=== PATIENT | female | born 1955 | race Caucasian/White ===

== ENCOUNTER 2017-12-02 12:27 | Inpatient (IN) | payer OTHER ==
[~2017-12-02] VITALS: Ht 160 cm; Wt 70.0 kg
[2017-12-02] VITALS (9 sets, daily range): BP systolic 117–151; BP diastolic 56–95; PULSE 77–101; RESP 17–19; TEMP 96.6–99.5; O2SAT 90–99
[~2017-12-02 12:27] MED LIST: DIPH25TA2 OR; EPIP0.3I IM; PRED50TA PO; PROM25SU8 PO; RANI150 PO; Z.0.NO CURRENT MEDS
[2017-12-02] MEDS ORDERED: methylPREDNISolone SOD SUCC 125 MG/2 ML VIAL IV PUSH ONE (13:00)
[2017-12-02] MEDS ORDERED: SODIUM CHLOR 0.9% 1000 ML INJ 1,000 ML IV ONE (13:00)
[2017-12-02] MEDS ORDERED: SODIUM CHLORIDE 0.9% FLUSH 10 ML FLUSH IVF PRN (13:00)
--- NOTE | 2017-12-02 13:17 | RADRPT ---
EXAM DATE/TIME: 12/02/2017 13:03 [place] COMPARISON: No previous studies available for comparison. INDICATIONS : Short of breath. Productive cough. MEDICAL HISTORY : None. SURGICAL HISTORY : None. ENCOUNTER: Initial ACUITY: 2 weeks PAIN SCORE: 0/10 LOCATION: Bilateral chest FINDINGS: PA and lateral views the chest were obtained and demonstrate consolidative infiltrate in the right mi ddle lobe and lingula. The heart size is within normal limits. There is no effusion. The bony thorax is intact. CONCLUSION: Consolidative infiltrate in the right middle lobe and lingula most characteristic of pneumonia. Manuel Godoy MD on December 02, 2017 at 13:13 Board Certified Radiologist. This report was verified electronically.
[2017-12-02] MEDS ORDERED: AZITHROMYCIN INJ 500 MG in SODIUM CHLOR 0.9% 250 ML INJ 250 ML IV ONE (13:30)
[2017-12-02] MEDS ORDERED: cefTRIAXone INJ 2,000 MG in SODIUM CHLORIDE 0.9% INJ 100 ML IV ONE (13:30)
--- NOTE | 2017-12-02 13:35 | PD ---
HPI Chief Complaint: Respiratory Symptoms Time Seen by Provider: 12:40 Travel History International Travel<30 days: No Contact w/Intl Traveler<30days: No Traveled to known affect area: No History of Present Illness HPI Patient is a 62-year-old female presenting to emerge from for evaluation of shortness of breath, cough. Symptoms started approximately 3 weeks ago. She reports a cough which is productive with green sputum. She reports subjective fever and chills and sweats, runny nose, decreased appetite. She denies any headache, nausea, vomiting, abdominal pain, chest pain. Patient has had no sick contacts, she is a non-smoker. She does have a diagnosis of COPD however she was never an active smoker and this is secondary to significant exposure to secondhand smoke. Patient has been taking [id number] Zuleima-[place] plus with no improvement in her symptoms. Patient is tachypneic on arrival. [facility] Past Medical History COPD: Yes (possible dx?) Diminished Hearing: No Respiratory: Yes (PNEUMONIA ) Menopausal: Yes Social History Alcohol Use: No Tobacco Use: No Substance Use: No Allergies-Medications (Allergen,Severity, Reaction): Coded Allergies: codeine (Verified Allergy, Unknown, 12/02/17) Reported Meds & Prescriptions Reported Meds & Active Scripts Active No Active Prescriptions or Reported Medications Review of Systems Except as stated in HPI: all other systems reviewed are Neg General / Constitutional: Positive: Fever, Chills HENT: No: Headaches, Lightheadedness Cardiovascular: No: Chest Pain or Discomfort Respiratory: Positive: Cough, Shortness of Breath, Orthopnea Gastrointestinal: No: Nausea, Vomiting, Abdominal Pain Musculoskeletal: No: Myalgias Neurologic: No: Weakness, Dizziness, Syncope, Focal Abnormalities Physical Exam Narrative GENERAL: Thin, well-developed, alert female. Presenting in no acute distress SKIN: Warm and dry. HEAD: Atraumatic. Normocephalic. EYES: Pupils equal and round. No scleral icterus. No injection or drainage. ENT: No nasal bleeding or discharge. Mucous membranes pink and moist. NECK: Trachea midline. No JVD. CARDIOVASCULAR: Regular rate and rhythm. RESPIRATORY: Tachypnea. Breath sounds diminished in the right lower lobe, no wheezes, rhonchi, rales noted per GASTROINTESTINAL: Abdomen soft, non-tender, nondistended. Hepatic and splenic margins not palpable. MUSCULOSKELETAL: Extremities without clubbing, cyanosis, or edema. No obvious deformities. NEUROLOGICAL: Awake and alert. No obvious cranial nerve deficits. Motor grossly within normal limits. Five out of 5 muscle strength in the arms and legs. Normal speech. PSYCHIATRIC: Appropriate mood and affect; insight and judgment normal. Data Data Last Documented VS Vital Signs Date Time Temp Pulse Resp B/P (MAP) Pulse Ox O2 Delivery O2 Flow Rate FiO2 12/02/17 15:09 99 18 135/69 (91) 95 Nasal Cannula 3.00 12/02/17 12:41 99.3 94 Orders Orders Complete Blood Count With Diff (12/02/17 12:46) Comprehensive Metabolic Panel (12/02/17 12:46) B-Type Natriuretic Peptide (12/02/17 12:46) Magnesium (Mg) (12/02/17 12:46) Arterial Blood Gas (Abg) (12/02/17 12:46) Influenzae A/B Antigen (12/02/17 12:46) Iv Access Insert/Monitor (12/02/17 12:46) Electrocardiogram (12/02/17 12:46) Ecg Monitoring (12/02/17 12:46) Oximetry (12/02/17 12:46) Oxygen Administration (12/02/17 12:46) Chest, Pa & Lat (12/02/17 12:46) Sodium Chloride 0.9% Flush (Ns Flush) (12/02/17 13:00) Methylprednisolone So Succ Inj (Solumedr (12/02/17 13:00) Albuterol-Ipratropium Neb (Duoneb Neb) (12/02/17 13:00) Lactic Acid Sepsis Protocol (12/02/17 12:46) Sodium Chlor 0.9% 1000 Ml Inj (Ns 1000 M (12/02/17 13:00) Ceftriaxone Inj (Rocephin Inj) (12/02/17 13:30) Azithromycin Inj (Zithromax Inj) (12/02/17 13:30) Guaifenesin Liq (Robitussin Liq) (12/02/17 14:30) Potassium Chlor 20 Meq Premix (Kcl 20 Me (12/02/17 14:30) Potassium Chloride (Kcl) (12/02/17 14:30) Blood Culture (12/02/17 14:45) Ns + Kcl 20 Meq Inj (Ns + Kcl 20 Meq Inj (12/02/17 14:55) Sodium Chloride 0.9% Flush (Ns Flush) (12/02/17 15:00) Sodium Chloride 0.9% Flush (Ns Flush) (12/02/17 21:00) Azithromycin (Zithromax) (12/03/17 09:00) Acetaminophen (Tylenol) (12/02/17 15:00) Ondansetron Inj (Zofran Inj) (12/02/17 15:00) Albuterol-Ipratropium Neb (Duoneb Neb) (12/02/17 20:00) Albuterol-Ipratropium Neb (Duoneb Neb) (12/02/17 15:00) Admit To Inpatient (12/02/17 ) Code Status (12/02/17 14:55) Vital Signs (Adult) Q4H (12/02/17 14:55) Activity Oob With Assistance PRN (12/02/17 14:55) Intake + Output Q8H (12/02/17 14:55) ^ Smoking Cessation Counseling (12/02/17 14:55) Diet Regular Basic (12/02/17 Dinner) Complete Blood Count With Diff (12/03/17 06:00) Basic Metabolic Panel (Bmp) (12/03/17 06:00) Legionella Urinary Antigen (12/02/17 14:55) Pneumococcal Urinary Antigen (12/02/17 14:55) Chest, Pa & Lat (12/03/17 ) Resp Oxygen Cristian C Titrat 1-4 L (12/02/17 ) Consult Pt Eval & Treat (12/02/17 14:55) Scd Bilateral/Knee High ESTHELA.BID (12/02/17 14:55) Inpatient Certification (12/02/17 ) Azithromycin (Zithromax) (12/03/17 09:00) Ceftriaxone Inj (Rocephin Inj) (12/03/17 14:00) Admit Order (Ed Use Only) (12/02/17 15:09) Labs Laboratory Tests Test 12/02/17 13:10 12/02/17 13:48 White Blood Count 13.3 TH/MM3 Red Blood Count 4.12 MIL/MM3 Hemoglobin 11.5 GM/DL Hematocrit 33.5 % Mean Corpuscular Volume 81.4 FL Mean Corpuscular Hemoglobin 27.9 PG Mean Corpuscular Hemoglobin Concent 34.3 % Red Cell Distribution Width 13.3 % Platelet Count 437 TH/MM3 Mean Platelet Volume 7.5 FL Neutrophils (%) (Auto) 70.9 % Lymphocytes (%) (Auto) 14.7 % Monocytes (%) (Auto) 13.9 % Eosinophils (%) (Auto) 0.4 % Basophils (%) (Auto) 0.1 % Neutrophils # (Auto) 9.5 TH/MM3 Lymphocytes # (Auto) 2.0 TH/MM3 Monocytes # (Auto) 1.9 TH/MM3 Eosinophils # (Auto) 0.1 TH/MM3 Basophils # (Auto) 0.0 TH/MM3 CBC Comment AUTO DIFF Differential Total Cells Counted 100 Neutrophils % (Manual) 44 % Band Neutrophils % 34 % Lymphocytes % 9 % Monocytes % 10 % Eosinophils % 1 % Neutrophils # (Manual) 10.6 TH/MM3 Metamyelocytes 2 % Differential Comment FINAL DIFF MANUAL Toxic Granulation 2+ Platelet Estimate NORMAL Platelet Morphology Comment NORMAL Red Cell Morphology Comment NORMAL Blood Urea Nitrogen 8 MG/DL Creatinine 0.63 MG/DL Random Glucose 113 MG/DL Total Protein 8.4 GM/DL Albumin 3.0 GM/DL Calcium Level 9.2 MG/DL Magnesium Level 2.0 MG/DL Alkaline Phosphatase 155 U/L Aspartate Amino Transf (AST/SGOT) 51 U/L Alanine Aminotransferase (ALT/SGPT) 48 U/L Total Bilirubin 0.7 MG/DL Sodium Level 128 MEQ/L Potassium Level 2.9 MEQ/L Chloride Level 90 MEQ/L Carbon Dioxide Level 28.3 MEQ/L Anion Gap 10 MEQ/L Estimat Glomerular Filtration Rate 95 ML/MIN Lactic Acid Level 1.6 mmol/L B-Type Natriuretic Peptide 18 PG/ML Blood Gas Puncture Site RT RADIAL Blood Gas Patient Temperature 98.6 Blood Gas HCO3 26 mmol/L Blood Gas Base Excess 1.7 mmol/L Blood Gas Oxygen Saturation 97 % Arterial Blood pH 7.43 Arterial Blood Partial Pressure CO2 39 mmHg Arterial Blood Partial Pressure O2 121 mmHG Arterial Blood Oxygen Content 15.0 Vol % Arterial Blood Carboxyhemoglobin 1.1 % Arterial Blood Methemoglobin 0.5 % Blood Gas Hemoglobin 10.9 G/DL Oxygen Delivery Device MASK Blood Gas Liter Flow 8 L/M MDM Medical Decision Making Medical Screen Exam Complete: Yes Emergency Medical Condition: Yes Interpretation(s) Vital Signs Date Time Temp Pulse Resp B/P (MAP) Pulse Ox O2 Delivery O2 Flow Rate FiO2 12/02/17 15:09 99 18 135/69 (91) 95 Nasal Cannula 3.00 12/02/17 14:32 94 Nasal Cannula 2.00 12/02/17 14:32 99 18 141/95 (110) 94 Nasal Cannula 2.00 12/02/17 14:32 18 94 Nasal Cannula 2.00 12/02/17 13:42 96 Nasal Cannula 2.00 12/02/17 12:41 97 18 94 Nasal Cannula 2.00 12/02/17 12:41 99.3 100 18 141/95 (110) Nasal Cannula 2.00 94 12/02/17 12:31 99.0 101 18 144/67 (92) 90 Last Impressions Chest X-Ray 12/02/17 1246 Signed Impressions: Service Date/Time: Saturday, December 02, 2017 13:03 - CONCLUSION: Consolidative infiltrate in the right middle lobe and lingula most characteristic of pneumonia. Manuel Godoy MD Laboratory Tests Test 12/02/17 13:10 12/02/17 13:48 White Blood Count 13.3 TH/MM3 Red Blood Count 4.12 MIL/MM3 Hemoglobin 11.5 GM/DL Hematocrit 33.5 % Mean Corpuscular Volume 81.4 FL Mean Corpuscular Hemoglobin 27.9 PG Mean Corpuscular Hemoglobin Concent 34.3 % Red Cell Distribution Width 13.3 % Platelet Count 437 TH/MM3 Mean Platelet Volume 7.5 FL Neutrophils (%) (Auto) 70.9 % Lymphocytes (%) (Auto) 14.7 % Monocytes (%) (Auto) 13.9 % Eosinophils (%) (Auto) 0.4 % Basophils (%) (Auto) 0.1 % Neutrophils # (Auto) 9.5 TH/MM3 Lymphocytes # (Auto) 2.0 TH/MM3 Monocytes # (Auto) 1.9 TH/MM3 Eosinophils # (Auto) 0.1 TH/MM3 Basophils # (Auto) 0.0 TH/MM3 CBC Comment AUTO DIFF Differential Total Cells Counted 100 Neutrophils % (Manual) 44 % Band Neutrophils % 34 % Lymphocytes % 9 % Monocytes % 10 % Eosinophils % 1 % Neutrophils # (Manual) 10.6 TH/MM3 Metamyelocytes 2 % Differential Comment FINAL DIFF MANUAL Toxic Granulation 2+ Platelet Estimate NORMAL Platelet Morphology Comment NORMAL Red Cell Morphology Comment NORMAL Blood Urea Nitrogen 8 MG/DL Creatinine 0.63 MG/DL Random Glucose 113 MG/DL Total Protein 8.4 GM/DL Albumin 3.0 GM/DL Calcium Level 9.2 MG/DL Magnesium Level 2.0 MG/DL Alkaline Phosphatase 155 U/L Aspartate Amino Transf (AST/SGOT) 51 U/L Alanine Aminotransferase (ALT/SGPT) 48 U/L Total Bilirubin 0.7 MG/DL Sodium Level 128 MEQ/L Potassium Level 2.9 MEQ/L Chloride Level 90 MEQ/L Carbon Dioxide Level 28.3 MEQ/L Anion Gap 10 MEQ/L Estimat Glomerular Filtration Rate 95 ML/MIN Lactic Acid Level 1.6 mmol/L B-Type Natriuretic Peptide 18 PG/ML Blood Gas Puncture Site RT RADIAL Blood Gas Patient Temperature 98.6 Blood Gas HCO3 26 mmol/L Blood Gas Base Excess 1.7 mmol/L Blood Gas Oxygen Saturation 97 % Arterial Blood pH 7.43 Arterial Blood Partial Pressure CO2 39 mmHg Arterial Blood Partial Pressure O2 121 mmHG Arterial Blood Oxygen Content 15.0 Vol % Arterial Blood Carboxyhemoglobin 1.1 % Arterial Blood Methemoglobin 0.5 % Blood Gas Hemoglobin 10.9 G/DL Oxygen Delivery Device MASK Blood Gas Liter Flow 8 L/M Last Impressions Chest X-Ray 12/02/17 1246 Signed Impressions: Service Date/Time: Saturday, December 02, 2017 13:03 - CONCLUSION: Consolidative infiltrate in the right middle lobe and lingula most characteristic of pneumonia. Manuel Godoy MD Vital Signs Date Time Temp Pulse Resp B/P (MAP) Pulse Ox O2 Delivery O2 Flow Rate FiO2 12/02/17 12:41 97 18 94 Nasal Cannula 2.00 12/02/17 12:41 99.3 100 18 141/95 (110) Nasal Cannula 2.00 94 12/02/17 12:31 99.0 101 18 144/67 (92) 90 Differential Diagnosis COPD exacerbation versus metabolic abnormality versus pneumonia versus bronchitis versus other Narrative Course Patient is a 62-year-old female sent by urgent care for evaluation of pneumonia. She was given an albuterol treatment there, her respiratory status did not improve and she was subsequently sent to emergency department. Patient' s vital signs are stable, her oxygen saturation on room air was 90%. She is currently 94% on 2 L. Labs and imaging ordered and pending. Chest x-ray shows right middle lobe pneumonia Patient was given Solu-Medrol, duo nebs, azithromycin and Rocephin ordered. Patient received 1 L of IV fluids ABG is unremarkable Chemistry with potassium 2.9, sodium 128, lactic acid 1.6 CBC with a white count of 13.3, 34 bands. KCl IV and oral replacement ordered Guaifenesin ordered for cough Patient was assessed, she had taken her oxygen off and her O2 sat was 89% seated on her bed. Patient admitted to Dr. Fay. Sepsis Criteria SIRS Criteria (2 or more): Heart rate over 90, RR > 20 or PaCO2 < 32 ( observed RR 24 on arrival to room), WBC > 25445, < 4000 or > 10% bands Sepsis Criteria (SIRS+source): Infect source susp/known Criteria Outcome: Meets SIRS criteria Diagnosis Primary Impression: Pneumonia Qualified Codes: J18.1 - Lobar pneumonia, unspecified organism Additional Impressions: Hypokalemia Hyponatremia Bandemia SIRS (systemic inflammatory response syndrome) Admitting Information Admitting Physician Requests: Admit Scripts No Active Prescriptions or Reported Meds Condition: Stable Nicole Umana Dec 02, 2017 13:34
[2017-12-02 13:41] LABS: AUTOMATED NEUTROPHIL # 9.5 TH/MM3 (1.8-7.7); BASOPHIL % 0.1 % (0.0-2.0); EOSINOPHIL # 0.1 TH/MM3 (0-0.4); EOSINOPHIL % 0.4 % (0.0-4.0); HEMATOCRIT 33.5 % (35.0-46.0); HEMOGLOBIN 11.5 GM/DL (11.6-15.3); LYMPH % 14.7 % (9.0-44.0); MEAN CELL VOLUME 81.4 FL (80.0-100.0); MEAN CORPUSCULAR HEMOGLOBIN 27.9 PG (27.0-34.0); MEAN CORPUSCULAR HGB CONC 34.3 % (32.0-36.0); MEAN PLATELET VOLUME 7.5 FL (7.0-11.0); MONO % 13.9 % (0.0-8.0); MONOCYTE # 1.9 TH/MM3 (0-0.9); NEUT % 70.9 % (16.0-70.0); PLATELET COUNT 437 TH/MM3 (150-450); RED BLOOD COUNT 4.12 MIL/MM3 (4.00-5.30); RED CELL DISTRIBUTION WIDTH 13.3 % (11.6-17.2); WHITE BLOOD COUNT 13.3 TH/MM3 (4.0-11.0)
[2017-12-02] MEDS: RESP: ALBUTEROL 2.5 MG/IPRATROPIUM 0.5 MG NEB (SCH) INH ×2 (13:42→20:00)
[2017-12-02 14:19] LABS: ALKALINE PHOSPHATASE 155 U/L (45-117); ALT (GPT) 48 U/L (10-53); AST (GOT) 51 U/L (15-37); BICARBONATE 28.3 MEQ/L (21.0-32.0); BLOOD UREA NITROGEN 8 MG/DL (7-18); CALCIUM 9.2 MG/DL (8.5-10.1); CHLORIDE 90 MEQ/L (98-107); CREATININE 0.63 MG/DL (0.50-1.00); GLOMERULAR FILTRATION RATE 95 ML/MIN (>89); GLUCOSE,RANDOM 113 MG/DL (74-106); SODIUM (NA) 128 MEQ/L (136-145); TOTAL BILIRUBIN ADULT 0.7 MG/DL (0.2-1.0); TOTAL PROTEIN 8.4 GM/DL (6.4-8.2)
[2017-12-02] MEDS ORDERED: guaiFENesin SOLUTION 200 MG/10 ML CUP PO ONE (14:30)
[2017-12-02] MEDS ORDERED: POTASSIUM CHLOR 20 MEQ PREMIX 100 ML IV SCH (14:30)
[2017-12-02] MEDS ORDERED: POTASSIUM CHLORIDE 10 MEQ CONTROLLED RELEASE TAB PO ONE (14:30)
[2017-12-02 14:37] LABS: BANDS 34 % (0-6); LYMPHOCYTES 9 % (9-44); METAMYELOCYTES 2 % (0-1); MONOCYTES 10 % (0-8); NEUTROPHIL # MANUAL DIFF 10.6 TH/MM3 (1.8-7.7); POLYS (SEG NEUTROPHILS) 44 % (16-70); TOXIC GRANULATION 2+ (NORMAL)
[2017-12-02] MEDS ORDERED: RESP: ALBUTEROL 2.5 MG/IPRATROPIUM 0.5 MG NEB (PRN) INH (15:00)
[2017-12-02] MEDS ORDERED: ACETAMINOPHEN 325 MG TAB PO PRN (15:00)
[2017-12-02] MEDS ORDERED: SODIUM CHLORIDE 0.9% FLUSH 10 ML FLUSH IV FLUSH PRN (15:00)
[2017-12-02] MEDS ORDERED: ONDANSETRON HCL 4 MG/2 ML VIAL IV PUSH PRN (15:00)
--- NOTE | 2017-12-02 15:14 | HHI.HP ---
HPI Service [facility] Hospitalists Primary Care Physician Moe Herring MD Admission Diagnosis Community acquired PNA Chief Complaint: Shortness of breath and cough productive of green phlegm 3 weeks Travel History International Travel<30 Days: No Contact w/Intl Traveler <30 Da: No Traveled to Known Affected Are: No History of Present Illness This is 62-year-old female patient with past medical history which includes uterine prolapse and COPD. Patient was seen earlier today outpatient setting was referred to emergency department for further evaluation and treatment. Patient reports she started cough about 3 weeks ago from allergies. Patient reports progressive worsening of shortness of breath and cough for the previous 3 weeks. Patient's cough is productive of green phlegm. Patient's symptoms are associated with subjective fevers, chills or diaphoresis and decreased appetite. Prior 3 weeks ago patient was in her normal state of health. Patient is not aware of any sick contacts. Patient's been taking over-the- counter Benadryl and Zuleima-[place] with no relief. Patient denies chest pain nausea vomiting diarrhea or constipation. Chest x-ray in the emergency department reviewed and reveals consolidative infiltrate in the right middle lobe and lingula and on most characteristic of pneumonia Pulse oxygenation 90% on room air upon arrival to the emergency department White blood cell count 13.3 neutrophil percent 70.9 with 34% bands Potassium also noted to be 2.9 magnesium 2.0 Lactic acid 1.6 Review of Systems Constitutional: COMPLAINS OF: Diaphoretic episodes, Fatigue, Fever, Chills Respiratory: COMPLAINS OF: Cough, Sputum production, Shortness of breath Cardiovascular: COMPLAINS OF: Dyspnea on Exertion, DENIES: Chest pain, Palpitations, Lower Extremity Edema Genitourinary: DENIES: Urinary frequency, Dysuria Neurologic: DENIES: Abnormal gait, Headache, Localized weakness Psychiatric: DENIES: Anxiety, Confusion, Depression Past Family Social History Past Medical History COPD and uterine prolapse Past Surgical History 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 reconstruction secondary to fracture Reported Medications Reports no medications on a daily basis at home Has been taking [id number] Benadryl Zuelima-Salzer cold/congestion for the last 3 weeks Allergies: Coded Allergies: codeine (Verified Allergy, Unknown, 12/02/17) Family History Reviewed and noncontributory Social History Retired worked at an [employer] for 30 years Denies ETOH, tobacco use or illicit drug use Physical Exam Vital Signs Vital Signs Date Time Temp Pulse Resp B/P (MAP) Pulse Ox O2 Delivery O2 Flow Rate FiO2 12/02/17 14:32 94 Nasal Cannula 2.00 12/02/17 14:32 99 18 141/95 (110) 94 Nasal Cannula 2.00 12/02/17 14:32 18 94 Nasal Cannula 2.00 12/02/17 13:42 96 Nasal Cannula 2.00 12/02/17 12:41 97 18 94 Nasal Cannula 2.00 12/02/17 12:41 99.3 100 18 141/95 (110) Nasal Cannula 2.00 94 12/02/17 12:31 99.0 101 18 144/67 (92) 90 Physical Exam GENERAL: This is a well-nourished, well-developed patient, in no acute distress SKIN: No rashes, ecchymoses or lesions. Cool and dry. HEAD: Atraumatic. Normocephalic. No temporal or scalp tenderness. EYES: Extraocular motions intact. No scleral icterus. No injection or drainage. CARDIOVASCULAR: Regular rate and rhythm RESPIRATORY: Coarse Diminished bilateral bases GASTROINTESTINAL: Abdomen soft, non-tender, nondistended MUSCULOSKELETAL: Extremities without clubbing, cyanosis, or edema. No joint tenderness, effusion, or edema noted. No calf tenderness. Negative Homans sign bilaterally. NEUROLOGICAL: Awake and alert. No focal deficits appreciated. Motor and sensory grossly within normal limits. Five out of 5 muscle strength in all muscle groups. Laboratory Laboratory Tests Test 12/02/17 13:10 12/02/17 13:48 White Blood Count 13.3 Red Blood Count 4.12 Hemoglobin 11.5 Hematocrit 33.5 Mean Corpuscular Volume 81.4 Mean Corpuscular Hemoglobin 27.9 Mean Corpuscular Hemoglobin Concent 34.3 Red Cell Distribution Width 13.3 Platelet Count 437 Mean Platelet Volume 7.5 Neutrophils (%) (Auto) 70.9 Lymphocytes (%) (Auto) 14.7 Monocytes (%) (Auto) 13.9 Eosinophils (%) (Auto) 0.4 Basophils (%) (Auto) 0.1 Neutrophils # (Auto) 9.5 Lymphocytes # (Auto) 2.0 Monocytes # (Auto) 1.9 Eosinophils # (Auto) 0.1 Basophils # (Auto) 0.0 CBC Comment AUTO DIFF Differential Total Cells Counted 100 Neutrophils % (Manual) 44 Band Neutrophils % 34 Lymphocytes % 9 Monocytes % 10 Eosinophils % 1 Neutrophils # (Manual) 10.6 Metamyelocytes 2 Differential Comment FINAL DIFF MANUAL Toxic Granulation 2+ Platelet Estimate NORMAL Platelet Morphology Comment NORMAL Red Cell Morphology Comment NORMAL Blood Urea Nitrogen 8 Creatinine 0.63 Random Glucose 113 Total Protein 8.4 Albumin 3.0 Calcium Level 9.2 Magnesium Level 2.0 Alkaline Phosphatase 155 Aspartate Amino Transf (AST/SGOT) 51 Alanine Aminotransferase (ALT/SGPT) 48 Total Bilirubin 0.7 Sodium Level 128 Potassium Level 2.9 Chloride Level 90 Carbon Dioxide Level 28.3 Anion Gap 10 Estimat Glomerular Filtration Rate 95 Lactic Acid Level 1.6 B-Type Natriuretic Peptide 18 Blood Gas Puncture Site RT RADIAL Blood Gas Patient Temperature 98.6 Blood Gas HCO3 26 Blood Gas Base Excess 1.7 Blood Gas Oxygen Saturation 97 Arterial Blood pH 7.43 Arterial Blood Partial Pressure CO2 39 Arterial Blood Partial Pressure O2 121 Arterial Blood Oxygen Content 15.0 Arterial Blood Carboxyhemoglobin 1.1 Arterial Blood Methemoglobin 0.5 Blood Gas Hemoglobin 10.9 Oxygen Delivery Device MASK Blood Gas Liter Flow 8 Date/Time Source Procedure Growth Status 12/02/17 13:20 Nasal Washing Influenza Types A,B Antigen (ALEXIS) - Final NEGATIVE FOR FLU A AND B ANTIGEN.... Complete Result Diagram: 12/02/17 1310 12/02/17 1310 Imaging Last Impressions Chest X-Ray 12/02/17 1246 Signed Impressions: Service Date/Time: Saturday, December 02, 2017 13:03 - CONCLUSION: Consolidative infiltrate in the right middle lobe and lingula most characteristic of pneumonia. MD Fatou cMkennai VTE Risk Assessment Caprini VTE Risk Assessment: No/Low Risk (score <= 1) Caprini Risk Assessment Model Point Value = 1 Point Value = 2 Point Value = 3 Point Value = 5 Age 41-60 Minor surgery BMI > 25 kg/m2 Swollen legs Varicose veins or History of unexplained or recurrent spontaneous Oral contraceptives or hormone replacement Sepsis (< 1 month) Serious lung disease, including pneumonia (< 1 month) Abnormal pulmonary function Acute myocardial infarction Congestive heart failure (< 1 month) History of inflammatory bowel disease Medical patient at bed rest Age 61-74 Arthroscopic surgery Major open surgery (> 45 min) Laparoscopic surgery (> 45 min) Malignancy Confined to bed (> 72 hours) Immobilizing plaster cast Central venous access Age >= 75 History of VTE Family history of VTE Factor V Leiden Prothrombin [id number] Lupus anticoagulant Anticardiolipin antibodies Elevated serum homocysteine Heparin-induced thrombocytopenia Other congenital or acquired thrombophilia Stroke (< 1 month) Elective arthroplasty Hip, pelvis, or leg fracture Acute spinal cord injury (< 1 month) Prophylaxis Regimen Total Risk Factor Score Risk Level Prophylaxis Regimen 0-1 Low Early ambulation 2 Moderate Order ONE of the following: *Sequential Compression Device (SCD) *Heparin 5000 units SQ BID 3-4 Higher Order ONE of the following medications: *Heparin 5000 units SQ TID *Enoxaparin/Lovenox 40 mg SQ daily (WT < 150 kg, CrCl > 30 mL/min) *Enoxaparin/Lovenox 30 mg SQ daily (WT < 150 kg, CrCl > 10-29 mL/min) *Enoxaparin/Lovenox 30 mg SQ BID (WT < 150 kg, CrCl > 30 mL/min) AND/OR *Sequential Compression Device (SCD) 5 or more Highest Order ONE of the following medications: *Heparin 5000 units SQ TID (Preferred with Epidurals) *Enoxaparin/Lovenox 40 mg SQ daily (WT < 150 kg, CrCl > 30 mL/min) *Enoxaparin/Lovenox 30 mg SQ daily (WT < 150 kg, CrCl > 10-29 mL/min) *Enoxaparin/Lovenox 30 mg SQ BID (WT < 150 kg, CrCl > 30 mL/min) AND *Sequential Compression Device (SCD) Assessment and Plan Problem List: (1) Pneumonia ICD Codes: J18.9 - Pneumonia, unspecified organism Status: Acute Plan: Patient has had shortness of breath and productive cough 3 weeks Chest x-ray reviewed and reveals consolidative infiltrate in the right middle lobe and lingula most characteristic of pneumonia. On closer review patient appears to have bilateral pna Patient started on Rocephin and azithromycin emergency department will continue Duo nebs scheduled and as needed Solu medrol 60 mg IV Q12H Supplemental oxygen to maintain oxygen saturation above 92% Supportive care DVT prophylaxis with SCDs (2) Hyponatremia ICD Codes: E87.1 - Hypo-osmolality and hyponatremia Status: Acute Plan: Sodium 128 upon arrival to the emergency department normal saline with 20 of K at 100ml/H recheck BMP in AM (3) Hypokalemia ICD Codes: E87.6 - Hypokalemia Status: Acute Plan: Potassium 2.9 upon arrival to the emergency department Magnesium 2.0 Potassium replaced emergency department also IV fluids with potassium Replacement recheck BMP in a.m. Assessment and Plan Patient examined. Assessment and plan formulated with Sabra Castro PA-C. I agree with the above. Physician Certification 2 Midnight Certification Type: Admission for Inpatient Services Order for Inpatient Services The services are ordered in accordance with Medicare regulations or non- Medicare payer requirements, as applicable. In the case of services not specified as inpatient-only, they are appropriately provided as inpatient services in accordance with the 2-midnight benchmark. Estimated LOS (days): 3 days is the estimated time the patient will need to remain in the hospital, assuming treatment plan goals are met and no additional complications. Post-Hospital Plan: Home Problem Qualifiers (1) Pneumonia: Qualified Codes: J18.1 - Lobar pneumonia, unspecified organism Sabra Castro Dec 02, 2017 15:14 Daryl Fay DO Dec 07, 2017 11:27
[2017-12-02] MEDS: NS + KCL 20 MEQ INJ 1,000 ML IV SCH (15:56)
--- NOTE | 2017-12-02 15:58 | PD ---
Physical Exam Date Seen by Provider: Dec 02, 2017 Narrative This patient presents with cough and purulent sputum production. Data Data Last Documented VS Vital Signs Date Time Temp Pulse Resp B/P (MAP) Pulse Ox O2 Delivery O2 Flow Rate FiO2 12/02/17 15:09 99 18 135/69 (91) 95 Nasal Cannula 3.00 12/02/17 12:41 99.3 94 Orders Orders Complete Blood Count With Diff (12/02/17 12:46) Comprehensive Metabolic Panel (12/02/17 12:46) B-Type Natriuretic Peptide (12/02/17 12:46) Magnesium (Mg) (12/02/17 12:46) Arterial Blood Gas (Abg) (12/02/17 12:46) Influenzae A/B Antigen (12/02/17 12:46) Iv Access Insert/Monitor (12/02/17 12:46) Electrocardiogram (12/02/17 12:46) Ecg Monitoring (12/02/17 12:46) Oximetry (12/02/17 12:46) Oxygen Administration (12/02/17 12:46) Chest, Pa & Lat (12/02/17 12:46) Sodium Chloride 0.9% Flush (Ns Flush) (12/02/17 13:00) Methylprednisolone So Succ Inj (Solumedr (12/02/17 13:00) Albuterol-Ipratropium Neb (Duoneb Neb) (12/02/17 13:00) Lactic Acid Sepsis Protocol (12/02/17 12:46) Sodium Chlor 0.9% 1000 Ml Inj (Ns 1000 M (12/02/17 13:00) Ceftriaxone Inj (Rocephin Inj) (12/02/17 13:30) Azithromycin Inj (Zithromax Inj) (12/02/17 13:30) Guaifenesin Liq (Robitussin Liq) (12/02/17 14:30) Potassium Chlor 20 Meq Premix (Kcl 20 Me (12/02/17 14:30) Potassium Chloride (Kcl) (12/02/17 14:30) Blood Culture (12/02/17 14:45) Ns + Kcl 20 Meq Inj (Ns + Kcl 20 Meq Inj (12/02/17 14:55) Sodium Chloride 0.9% Flush (Ns Flush) (12/02/17 15:00) Sodium Chloride 0.9% Flush (Ns Flush) (12/02/17 21:00) Azithromycin (Zithromax) (12/03/17 09:00) Acetaminophen (Tylenol) (12/02/17 15:00) Ondansetron Inj (Zofran Inj) (12/02/17 15:00) Albuterol-Ipratropium Neb (Duoneb Neb) (12/02/17 20:00) Albuterol-Ipratropium Neb (Duoneb Neb) (12/02/17 15:00) Admit To Inpatient (12/02/17 ) Code Status (12/02/17 14:55) Vital Signs (Adult) Q4H (12/02/17 14:55) Activity Oob With Assistance PRN (12/02/17 14:55) Intake + Output Q8H (12/02/17 14:55) ^ Smoking Cessation Counseling (12/02/17 14:55) Diet Regular Basic (12/02/17 Dinner) Complete Blood Count With Diff (12/03/17 06:00) Basic Metabolic Panel (Bmp) (12/03/17 06:00) Legionella Urinary Antigen (12/02/17 14:55) Pneumococcal Urinary Antigen (12/02/17 14:55) Chest, Pa & Lat (12/03/17 ) Resp Oxygen Cristian C Titrat 1-4 L (12/02/17 ) Consult Pt Eval & Treat (12/02/17 14:55) Scd Bilateral/Knee High ESTHLEA.BID (12/02/17 14:55) Inpatient Certification (12/02/17 ) Azithromycin (Zithromax) (12/03/17 09:00) Ceftriaxone Inj (Rocephin Inj) (12/03/17 14:00) Admit Order (Ed Use Only) (12/02/17 15:09) Labs Laboratory Tests Test 12/02/17 13:10 12/02/17 13:48 White Blood Count 13.3 TH/MM3 Red Blood Count 4.12 MIL/MM3 Hemoglobin 11.5 GM/DL Hematocrit 33.5 % Mean Corpuscular Volume 81.4 FL Mean Corpuscular Hemoglobin 27.9 PG Mean Corpuscular Hemoglobin Concent 34.3 % Red Cell Distribution Width 13.3 % Platelet Count 437 TH/MM3 Mean Platelet Volume 7.5 FL Neutrophils (%) (Auto) 70.9 % Lymphocytes (%) (Auto) 14.7 % Monocytes (%) (Auto) 13.9 % Eosinophils (%) (Auto) 0.4 % Basophils (%) (Auto) 0.1 % Neutrophils # (Auto) 9.5 TH/MM3 Lymphocytes # (Auto) 2.0 TH/MM3 Monocytes # (Auto) 1.9 TH/MM3 Eosinophils # (Auto) 0.1 TH/MM3 Basophils # (Auto) 0.0 TH/MM3 CBC Comment AUTO DIFF Differential Total Cells Counted 100 Neutrophils % (Manual) 44 % Band Neutrophils % 34 % Lymphocytes % 9 % Monocytes % 10 % Eosinophils % 1 % Neutrophils # (Manual) 10.6 TH/MM3 Metamyelocytes 2 % Differential Comment FINAL DIFF MANUAL Toxic Granulation 2+ Platelet Estimate NORMAL Platelet Morphology Comment NORMAL Red Cell Morphology Comment NORMAL Blood Urea Nitrogen 8 MG/DL Creatinine 0.63 MG/DL Random Glucose 113 MG/DL Total Protein 8.4 GM/DL Albumin 3.0 GM/DL Calcium Level 9.2 MG/DL Magnesium Level 2.0 MG/DL Alkaline Phosphatase 155 U/L Aspartate Amino Transf (AST/SGOT) 51 U/L Alanine Aminotransferase (ALT/SGPT) 48 U/L Total Bilirubin 0.7 MG/DL Sodium Level 128 MEQ/L Potassium Level 2.9 MEQ/L Chloride Level 90 MEQ/L Carbon Dioxide Level 28.3 MEQ/L Anion Gap 10 MEQ/L Estimat Glomerular Filtration Rate 95 ML/MIN Lactic Acid Level 1.6 mmol/L B-Type Natriuretic Peptide 18 PG/ML Blood Gas Puncture Site RT RADIAL Blood Gas Patient Temperature 98.6 Blood Gas HCO3 26 mmol/L Blood Gas Base Excess 1.7 mmol/L Blood Gas Oxygen Saturation 97 % Arterial Blood pH 7.43 Arterial Blood Partial Pressure CO2 39 mmHg Arterial Blood Partial Pressure O2 121 mmHG Arterial Blood Oxygen Content 15.0 Vol % Arterial Blood Carboxyhemoglobin 1.1 % Arterial Blood Methemoglobin 0.5 % Blood Gas Hemoglobin 10.9 G/DL Oxygen Delivery Device MASK Blood Gas Liter Flow 8 L/M MDM Supervised Visit with VELVET: Yes Narrative Course I, Dr. Ludwig, have reviewed the advance practice practitioner's documentation and am in agreement, met with the patient face to face, made the diagnosis, and the medical decision making was done by me. *My assessment and Findings: This patient is awake and alert and does not appear to be in any acute distress. Her O2 sats are 90% on room air. She is breathing comfortably on oxygen at 3 L. Last Impressions Chest X-Ray 12/02/17 1246 Signed Impressions: Service Date/Time: Saturday, December 02, 2017 13:03 - CONCLUSION: Consolidative infiltrate in the right middle lobe and lingula most characteristic of pneumonia. Manuel Godoy MD CBC & BMP Diagram 12/02/17 13:10 Total Protein 8.4 H, Albumin 3.0 L, Calcium Level 9.2, Magnesium Level 2.0, Alkaline Phosphatase 155 H, Aspartate Amino Transf (AST/SGOT) 51 H, Alanine Aminotransferase (ALT/SGPT) 48, Total Bilirubin 0.7 Please see Nicole Aguilar NP's note for results of laboratory and radiographic evaluation, ED course, final diagnosis and disposition Sepsis Criteria SIRS Criteria (2 or more): Heart rate over 90, WBC > 43538, < 4000 or > 10% bands Sepsis Criteria (SIRS+source): Infect source susp/known Criteria Outcome: Meets SIRS criteria, Meets sepsis criteria Diagnosis Primary Impression: Pneumonia Qualified Codes: J18.1 - Lobar pneumonia, unspecified organism Additional Impressions: Hyponatremia Bandemia Hypokalemia Scripts No Active Prescriptions or Reported Meds Silvia Ludwig MD Dec 02, 2017 15:58
[2017-12-02] MEDS ORDERED: POTASSIUM CHLORIDE 20 MEQ CONTROLLED RELEASE TAB PO ONE (18:30)
[2017-12-02] MEDS: methylPREDNISolone SOD SUCC 125 MG/2 ML VIAL IV PUSH SCH (20:23)
[2017-12-02] MEDS: SODIUM CHLORIDE 0.9% FLUSH 10 ML FLUSH IV FLUSH SCH (20:23)
[2017-12-03] VITALS (7 sets, daily range): BP systolic 121–140; BP diastolic 54–69; PULSE 65–81; RESP 17–18; TEMP 97.2–98.2; O2SAT 93–99
[2017-12-03] MEDS: NS + KCL 20 MEQ INJ 1,000 ML IV SCH (02:14)
[2017-12-03 04:30] LABS: AUTOMATED NEUTROPHIL # 13.3 TH/MM3 (1.8-7.7); BASOPHIL % 0.1 % (0.0-2.0); HEMATOCRIT 32.2 % (35.0-46.0); HEMOGLOBIN 10.8 GM/DL (11.6-15.3); LYMPHOCYTE # 1.4 TH/MM3 (1.0-4.8); MEAN CELL VOLUME 85.9 FL (80.0-100.0); MEAN CORPUSCULAR HEMOGLOBIN 28.9 PG (27.0-34.0); MEAN CORPUSCULAR HGB CONC 33.6 % (32.0-36.0); MEAN PLATELET VOLUME 7.4 FL (7.0-11.0); MONO % 2.8 % (0.0-8.0); MONOCYTE # 0.4 TH/MM3 (0-0.9); NEUT % 88.1 % (16.0-70.0); PLATELET COUNT 423 TH/MM3 (150-450); RED BLOOD COUNT 3.75 MIL/MM3 (4.00-5.30); RED CELL DISTRIBUTION WIDTH 13.4 % (11.6-17.2); WHITE BLOOD COUNT 15.1 TH/MM3 (4.0-11.0)
[2017-12-03 05:09] LABS: BICARBONATE 25.2 MEQ/L (21.0-32.0); CALCIUM 8.8 MG/DL (8.5-10.1); CREATININE 0.47 MG/DL (0.50-1.00)
[2017-12-03 05:55] LABS: BANDS 11 % (0-6); LYMPHOCYTES 6 % (9-44); METAMYELOCYTES 1 % (0-1); MONOCYTES 2 % (0-8); NEUTROPHIL # MANUAL DIFF 13.9 TH/MM3 (1.8-7.7); POLYS (SEG NEUTROPHILS) 80 % (16-70)
[2017-12-03 05:56] LABS: TOXIC GRANULATION 1+ (NORMAL)
[2017-12-03] MEDS: methylPREDNISolone SOD SUCC 125 MG/2 ML VIAL IV PUSH SCH ×2 (07:59→19:50)
[2017-12-03] MEDS: AZITHROMYCIN 250 MG TAB PO SCH (07:59)
[2017-12-03] MEDS: RESP: ALBUTEROL 2.5 MG/IPRATROPIUM 0.5 MG NEB (SCH) INH ×2 (08:00→21:15)
[2017-12-03] MEDS: SODIUM CHLORIDE 0.9% FLUSH 10 ML FLUSH IV FLUSH SCH ×2 (08:01→19:54)
[2017-12-03] MEDS ORDERED: AZITHROMYCIN 250 MG TAB PO SCH (09:00)
--- NOTE | 2017-12-03 10:48 | RADRPT ---
EXAM DATE/TIME: 12/03/2017 10:12 [place] COMPARISON: CHEST PA & LAT, December 02, 2017, 13:03. INDICATIONS : Cough and shortness of breath. Followup bilateral pulmonary infiltrates. MEDICAL HISTORY : None. SURGICAL HISTORY : None. ENCOUNTER: Subsequent ACUITY: 3 days PAIN SCORE: 4/10 LOCATION: Bilateral lower chest FINDINGS: PA and lateral views the chest are obtained and again demonstrate consolidative opacities in the righ t middle lobe and lingula which appear slightly improved. There is no effusion. The heart and mediast inal structures within normal. The bony thorax is intact. CONCLUSION: Mild apparent interval improvement in the consolidative opacities in right middle lob e and lingula. Manuel Godoy MD on December 03, 2017 at 10:45 Board Certified Radiologist. This report was verified electronically.
--- NOTE | 2017-12-03 12:21 | EKG ---
Date Performed: 12/02/2017 Time Performed: 14:37:24 PTAGE: 62 years EKG: SINUS TACHYCARDIA MODERATE ST DEPRESSION ABNORMAL ECG NO PREVIOUS TRACING DOCTOR: Chandana Galindo Interpretating Date/Time 12/03/2017 12:17:00
--- NOTE | 2017-12-03 13:02 | HHI.PR ---
Subjective Remarks Patient reports feeling, "a little better," today Objective Vitals Vital Signs Date Time Temp Pulse Resp B/P (MAP) Pulse Ox O2 Delivery O2 Flow Rate FiO2 12/03/17 11:30 97.2 71 18 136/65 (88) 93 12/03/17 09:31 95 Nasal Cannula 3.00 12/03/17 07:47 97.6 65 18 140/63 (88) 96 12/02/17 23:24 96.6 80 19 117/56 (76) 94 12/02/17 22:45 95 Nasal Cannula 3.00 12/02/17 20:34 Nasal Cannula 2.00 12/02/17 19:11 97.1 91 18 138/66 (90) 92 12/02/17 15:09 99 18 135/69 (91) 95 Nasal Cannula 3.00 12/02/17 14:32 94 Nasal Cannula 2.00 12/02/17 14:32 99 18 141/95 (110) 94 Nasal Cannula 2.00 12/02/17 14:32 18 94 Nasal Cannula 2.00 12/02/17 13:42 96 Nasal Cannula 2.00 Result Diagram: 12/03/17 0340 12/03/17 0340 Other Results Laboratory Tests Test 12/02/17 13:10 12/02/17 13:48 12/03/17 03:40 White Blood Count 13.3 TH/MM3 15.1 TH/MM3 Red Blood Count 4.12 MIL/MM3 3.75 MIL/MM3 Hemoglobin 11.5 GM/DL 10.8 GM/DL Hematocrit 33.5 % 32.2 % Mean Corpuscular Volume 81.4 FL 85.9 FL Mean Corpuscular Hemoglobin 27.9 PG 28.9 PG Mean Corpuscular Hemoglobin Concent 34.3 % 33.6 % Red Cell Distribution Width 13.3 % 13.4 % Platelet Count 437 TH/MM3 423 TH/MM3 Mean Platelet Volume 7.5 FL 7.4 FL Neutrophils (%) (Auto) 70.9 % 88.1 % Lymphocytes (%) (Auto) 14.7 % 9.0 % Monocytes (%) (Auto) 13.9 % 2.8 % Eosinophils (%) (Auto) 0.4 % 0.0 % Basophils (%) (Auto) 0.1 % 0.1 % Neutrophils # (Auto) 9.5 TH/MM3 13.3 TH/MM3 Lymphocytes # (Auto) 2.0 TH/MM3 1.4 TH/MM3 Monocytes # (Auto) 1.9 TH/MM3 0.4 TH/MM3 Eosinophils # (Auto) 0.1 TH/MM3 0.0 TH/MM3 Basophils # (Auto) 0.0 TH/MM3 0.0 TH/MM3 CBC Comment AUTO DIFF AUTO DIFF Differential Total Cells Counted 100 100 Neutrophils % (Manual) 44 % 80 % Band Neutrophils % 34 % 11 % Lymphocytes % 9 % 6 % Monocytes % 10 % 2 % Eosinophils % 1 % Neutrophils # (Manual) 10.6 TH/MM3 13.9 TH/MM3 Metamyelocytes 2 % 1 % Differential Comment FINAL DIFF MANUAL FINAL DIFF MANUAL Toxic Granulation 2+ 1+ Platelet Estimate NORMAL NORMAL Platelet Morphology Comment NORMAL NORMAL Red Cell Morphology Comment NORMAL Blood Urea Nitrogen 8 MG/DL 9 MG/DL Creatinine 0.63 MG/DL 0.47 MG/DL Random Glucose 113 MG/DL 158 MG/DL Total Protein 8.4 GM/DL Albumin 3.0 GM/DL Calcium Level 9.2 MG/DL 8.8 MG/DL Magnesium Level 2.0 MG/DL Alkaline Phosphatase 155 U/L Aspartate Amino Transf (AST/SGOT) 51 U/L Alanine Aminotransferase (ALT/SGPT) 48 U/L Total Bilirubin 0.7 MG/DL Sodium Level 128 MEQ/L 138 MEQ/L Potassium Level 2.9 MEQ/L 4.2 MEQ/L Chloride Level 90 MEQ/L 105 MEQ/L Carbon Dioxide Level 28.3 MEQ/L 25.2 MEQ/L Anion Gap 10 MEQ/L 8 MEQ/L Estimat Glomerular Filtration Rate 95 ML/MIN 133 ML/MIN Lactic Acid Level 1.6 mmol/L B-Type Natriuretic Peptide 18 PG/ML Blood Gas Puncture Site RT RADIAL Blood Gas Patient Temperature 98.6 Blood Gas HCO3 26 mmol/L Blood Gas Base Excess 1.7 mmol/L Blood Gas Oxygen Saturation 97 % Arterial Blood pH 7.43 Arterial Blood Partial Pressure CO2 39 mmHg Arterial Blood Partial Pressure O2 121 mmHG Arterial Blood Oxygen Content 15.0 Vol % Arterial Blood Carboxyhemoglobin 1.1 % Arterial Blood Methemoglobin 0.5 % Blood Gas Hemoglobin 10.9 G/DL Oxygen Delivery Device MASK Blood Gas Liter Flow 8 L/M Imaging Last Impressions Chest X-Ray 12/02/17 1246 Signed Impressions: Service Date/Time: Saturday, December 02, 2017 13:03 - CONCLUSION: Consolidative infiltrate in the right middle lobe and lingula most characteristic of pneumonia. Manuel Godoy MD Objective Remarks GENERAL: This is a well-nourished, well-developed patient, in no apparent distress. CARDIOVASCULAR: Regular rate and rhythm RESPIRATORY: few scattered rhonchi bilateral bases -> improved from yesterday GASTROINTESTINAL: Abdomen soft, non-tender, nondistended. Normal active bowel sounds MUSCULOSKELETAL: Extremities without clubbing, cyanosis, or edema. NEURO: Alert & Oriented x4 to person, place, time, situation. Moves all ext x4 A/P Problem List: (1) Pneumonia ICD Codes: J18.9 - Pneumonia, unspecified organism Status: Acute Plan: Patient has had shortness of breath and productive cough 3 weeks - Chest x-ray reviewed and reveals consolidative infiltrate in the right middle lobe and lingula most characteristic of pneumonia. - On closer review patient appears to have bilateral pna - Patient started on Rocephin and azithromycin emergency department will continue - Duo nebs scheduled and as needed - Solu medrol 60 mg IV Q12H - Supplemental oxygen to maintain oxygen saturation above 92% - repeat CXR (12/03) reviewed reveals: Mild apparent interval improvment in the consolidative opacities in right middle lobe and lingula - Supportive care DVT prophylaxis with SCDs (2) Hyponatremia ICD Codes: E87.1 - Hypo-osmolality and hyponatremia Status: Acute Plan: Sodium 128 upon arrival to the emergency department -> 12/03 Na 138 DC IV fluids normal saline with 20 of K at 100ml/H recheck BMP in AM (3) Hypokalemia ICD Codes: E87.6 - Hypokalemia Status: Acute Plan: Potassium 2.9 upon arrival to the emergency department -> (12/03) 4.2 Magnesium 2.0 Replacement recheck BMP in a.m. Assessment and Plan Patient examined. Assessment and plan formulated with Sabra Castro PA-C. I agree with the above. Problem Qualifiers (1) Pneumonia: Qualified Codes: J18.1 - Lobar pneumonia, unspecified organism Sabra Castro Dec 03, 2017 13:02 Daryl Fay DO Dec 07, 2017 11:27
[2017-12-03] MEDS: cefTRIAXone INJ 1,000 MG in SODIUM CHLORIDE 0.9% INJ 100 ML IV SCH (14:55)
[2017-12-04 06:36] LABS: AUTOMATED NEUTROPHIL # 20.7 TH/MM3 (1.8-7.7); BASOPHIL # 0.1 TH/MM3 (0-0.2); BASOPHIL % 0.2 % (0.0-2.0); HEMATOCRIT 32.8 % (35.0-46.0); LYMPH % 9.6 % (9.0-44.0); LYMPHOCYTE # 2.4 TH/MM3 (1.0-4.8); MEAN CELL VOLUME 85.8 FL (80.0-100.0); MEAN CORPUSCULAR HEMOGLOBIN 28.8 PG (27.0-34.0); MEAN CORPUSCULAR HGB CONC 33.5 % (32.0-36.0); MEAN PLATELET VOLUME 7.4 FL (7.0-11.0); MONO % 5.6 % (0.0-8.0); MONOCYTE # 1.4 TH/MM3 (0-0.9); NEUT % 84.6 % (16.0-70.0); PLATELET COUNT 559 TH/MM3 (150-450); RED BLOOD COUNT 3.82 MIL/MM3 (4.00-5.30); RED CELL DISTRIBUTION WIDTH 13.9 % (11.6-17.2); WHITE BLOOD COUNT 24.5 TH/MM3 (4.0-11.0)
[2017-12-04 07:09] LABS: CREATININE 0.66 MG/DL (0.50-1.00)
[2017-12-04 08:00] VITALS: BP 120/58; PULSE 61; RESP 18; TEMP 97.8; O2SAT 95
[2017-12-04] MEDS: predniSONE 10 MG TAB PO SCH ×2 (08:11→19:45)
[2017-12-04] MEDS: AZITHROMYCIN 250 MG TAB PO SCH (08:11)
[2017-12-04] MEDS: SODIUM CHLORIDE 0.9% FLUSH 10 ML FLUSH IV FLUSH SCH ×2 (08:12→19:45)
--- NOTE | 2017-12-04 08:21 | HHI.PR ---
Subjective Remarks Patient reports feeling better today cough much less frequent Objective Vitals Vital Signs Date Time Temp Pulse Resp B/P (MAP) Pulse Ox O2 Delivery O2 Flow Rate FiO2 12/04/17 08:15 Nasal Cannula 1.50 12/04/17 08:00 97.8 61 18 120/58 (78) 95 12/04/17 06:50 Nasal Cannula 2.00 12/03/17 23:21 98.2 75 18 125/54 (77) 99 12/03/17 21:15 96 Nasal Cannula 3.00 12/03/17 20:00 Nasal Cannula 3.00 12/03/17 19:22 97.2 81 18 131/59 (83) 94 12/03/17 16:00 97.2 65 18 133/64 (87) 94 12/03/17 11:30 97.2 71 18 136/65 (88) 93 12/03/17 09:31 95 Nasal Cannula 3.00 Result Diagram: 12/04/17 0605 12/04/17 06 Other Results Laboratory Tests Test 12/02/17 13:10 12/02/17 13:48 12/03/17 03:40 12/04/17 06:05 White Blood Count 13.3 TH/MM3 15.1 TH/MM3 24.5 TH/MM3 Red Blood Count 4.12 MIL/MM3 3.75 MIL/MM3 3.82 MIL/MM3 Hemoglobin 11.5 GM/DL 10.8 GM/DL 11.0 GM/DL Hematocrit 33.5 % 32.2 % 32.8 % Mean Corpuscular Volume 81.4 FL 85.9 FL 85.8 FL Mean Corpuscular Hemoglobin 27.9 PG 28.9 PG 28.8 PG Mean Corpuscular Hemoglobin Concent 34.3 % 33.6 % 33.5 % Red Cell Distribution Width 13.3 % 13.4 % 13.9 % Platelet Count 437 TH/MM3 423 TH/MM3 559 TH/MM3 Mean Platelet Volume 7.5 FL 7.4 FL 7.4 FL Neutrophils (%) (Auto) 70.9 % 88.1 % 84.6 % Lymphocytes (%) (Auto) 14.7 % 9.0 % 9.6 % Monocytes (%) (Auto) 13.9 % 2.8 % 5.6 % Eosinophils (%) (Auto) 0.4 % 0.0 % 0.0 % Basophils (%) (Auto) 0.1 % 0.1 % 0.2 % Neutrophils # (Auto) 9.5 TH/MM3 13.3 TH/MM3 20.7 TH/MM3 Lymphocytes # (Auto) 2.0 TH/MM3 1.4 TH/MM3 2.4 TH/MM3 Monocytes # (Auto) 1.9 TH/MM3 0.4 TH/MM3 1.4 TH/MM3 Eosinophils # (Auto) 0.1 TH/MM3 0.0 TH/MM3 0.0 TH/MM3 Basophils # (Auto) 0.0 TH/MM3 0.0 TH/MM3 0.1 TH/MM3 CBC Comment AUTO DIFF AUTO DIFF AUTO DIFF Differential Total Cells Counted 100 100 Neutrophils % (Manual) 44 % 80 % Band Neutrophils % 34 % 11 % Lymphocytes % 9 % 6 % Monocytes % 10 % 2 % Eosinophils % 1 % Neutrophils # (Manual) 10.6 TH/MM3 13.9 TH/MM3 Metamyelocytes 2 % 1 % Differential Comment FINAL DIFF MANUAL FINAL DIFF MANUAL Toxic Granulation 2+ 1+ Platelet Estimate NORMAL NORMAL Platelet Morphology Comment NORMAL NORMAL Red Cell Morphology Comment NORMAL Blood Urea Nitrogen 8 MG/DL 9 MG/DL 14 MG/DL Creatinine 0.63 MG/DL 0.47 MG/DL 0.66 MG/DL Random Glucose 113 MG/DL 158 MG/DL 135 MG/DL Total Protein 8.4 GM/DL Albumin 3.0 GM/DL Calcium Level 9.2 MG/DL 8.8 MG/DL 9.0 MG/DL Magnesium Level 2.0 MG/DL Alkaline Phosphatase 155 U/L Aspartate Amino Transf (AST/SGOT) 51 U/L Alanine Aminotransferase (ALT/SGPT) 48 U/L Total Bilirubin 0.7 MG/DL Sodium Level 128 MEQ/L 138 MEQ/L 139 MEQ/L Potassium Level 2.9 MEQ/L 4.2 MEQ/L 4.0 MEQ/L Chloride Level 90 MEQ/L 105 MEQ/L 103 MEQ/L Carbon Dioxide Level 28.3 MEQ/L 25.2 MEQ/L 28.0 MEQ/L Anion Gap 10 MEQ/L 8 MEQ/L 8 MEQ/L Estimat Glomerular Filtration Rate 95 ML/MIN 133 ML/MIN 90 ML/MIN Lactic Acid Level 1.6 mmol/L B-Type Natriuretic Peptide 18 PG/ML Blood Gas Puncture Site RT RADIAL Blood Gas Patient Temperature 98.6 Blood Gas HCO3 26 mmol/L Blood Gas Base Excess 1.7 mmol/L Blood Gas Oxygen Saturation 97 % Arterial Blood pH 7.43 Arterial Blood Partial Pressure CO2 39 mmHg Arterial Blood Partial Pressure O2 121 mmHG Arterial Blood Oxygen Content 15.0 Vol % Arterial Blood Carboxyhemoglobin 1.1 % Arterial Blood Methemoglobin 0.5 % Blood Gas Hemoglobin 10.9 G/DL Oxygen Delivery Device MASK Blood Gas Liter Flow 8 L/M Imaging Last Impressions Chest X-Ray 12/02/17 1246 Signed Impressions: Service Date/Time: Saturday, December 02, 2017 13:03 - CONCLUSION: Consolidative infiltrate in the right middle lobe and lingula most characteristic of pneumonia. Manuel Godoy MD Objective Remarks GENERAL: This is a well-nourished, well-developed patient, in no apparent distress. CARDIOVASCULAR: Regular rate and rhythm RESPIRATORY: CTA through out GASTROINTESTINAL: Abdomen soft, non-tender, nondistended. Normal active bowel sounds MUSCULOSKELETAL: Extremities without clubbing, cyanosis, or edema. NEURO: Alert & Oriented x4 to person, place, time, situation. Moves all ext x4 A/P Problem List: (1) Pneumonia ICD Codes: J18.9 - Pneumonia, unspecified organism Status: Acute Plan: Patient has had shortness of breath and productive cough 3 weeks - Chest x-ray reviewed and reveals consolidative infiltrate in the right middle lobe and lingula most characteristic of pneumonia. - On closer review patient appears to have bilateral pna - Patient started on Rocephin and azithromycin emergency department will continue - Duo nebs scheduled and as needed - Solu medrol 60 mg IV Q12H -> changed to prednisone 30 mg PO BID - Supplemental oxygen to maintain oxygen saturation above 92% -> request nurse titrate oxygen to RA if possible - repeat CXR (12/03) reviewed reveals: Mild apparent interval improvement in the consolidative opacities in right middle lobe and lingula - Supportive care DVT prophylaxis with SCDs (2) Hyponatremia ICD Codes: E87.1 - Hypo-osmolality and hyponatremia Status: Acute Plan: Sodium 128 upon arrival to the emergency department -> 12/03 Na 138 DC IV fluids -> (12/04) 139 normal saline with 20 of K at 100ml/H DC'd (3) Hypokalemia ICD Codes: E87.6 - Hypokalemia Status: Acute Plan: Potassium 2.9 upon arrival to the emergency department -> (12/03) 4.2 Magnesium 2.0 Replacement recheck BMP in a.m. Assessment and Plan Patient examined. Assessment and plan formulated with Sabra Castro PA-C. I agree with the above. pneumonia. reactive airways. cont iv abx and steroid taper. walk test. plan for d/c home in AM Problem Qualifiers (1) Pneumonia: Qualified Codes: J18.1 - Lobar pneumonia, unspecified organism Sabra Castro Dec 04, 2017 08:21 Ron Duenas MD Dec 04, 2017 12:58
[2017-12-04 08:31] VITALS: O2SAT 96
[2017-12-04 09:05] LABS: BANDS 18 % (0-6); LYMPHOCYTES 11 % (9-44); METAMYELOCYTES 2 % (0-1); MONOCYTES 4 % (0-8); MYELOCYTES 1 % (0-0); NEUTROPHIL # MANUAL DIFF 20.8 TH/MM3 (1.8-7.7); POLYS (SEG NEUTROPHILS) 64 % (16-70)
[2017-12-04 09:06] LABS: TOXIC GRANULATION 2+ (NORMAL)
[2017-12-04 11:38] VITALS: BP 149/65; PULSE 67; RESP 17; TEMP 97.8; O2SAT 93
[2017-12-04] MEDS: LORATADINE 10 MG TAB PO SCH (11:48)
[2017-12-04 15:42] VITALS: BP 155/70; PULSE 72; RESP 18; TEMP 97.4; O2SAT 92
[2017-12-04] MEDS: RESP: ALBUTEROL 2.5 MG/IPRATROPIUM 0.5 MG NEB (SCH) INH ×2 (16:40→19:29)
[2017-12-04] MEDS: cefTRIAXone INJ 1,000 MG in SODIUM CHLORIDE 0.9% INJ 100 ML IV SCH (19:17)
[2017-12-04 19:32] VITALS: O2SAT 94
[2017-12-04 20:00] VITALS: BP 157/70; PULSE 73; RESP 18; TEMP 97.6; O2SAT 91
[2017-12-05] VITALS: BP 143/68; PULSE 69; RESP 18; TEMP 97.9; O2SAT 98
[2017-12-05 04:00] VITALS: BP 146/68; PULSE 64; RESP 18; TEMP 97.9; O2SAT 98
[2017-12-05 07:35] VITALS: BP 132/64; PULSE 65; RESP 18; TEMP 98; O2SAT 93
[2017-12-05] MEDS ORDERED: LEVA500T33 PO (07:47)
[2017-12-05] MEDS ORDERED: PRED10 PO (07:47)
[2017-12-05 08:21] LABS: BASOPHIL # 0.1 TH/MM3 (0-0.2); BASOPHIL % 0.6 % (0.0-2.0); HEMATOCRIT 34.3 % (35.0-46.0); HEMOGLOBIN 11.6 GM/DL (11.6-15.3); LYMPH % 17.3 % (9.0-44.0); LYMPHOCYTE # 3.5 TH/MM3 (1.0-4.8); MEAN CELL VOLUME 82.9 FL (80.0-100.0); MEAN CORPUSCULAR HEMOGLOBIN 27.9 PG (27.0-34.0); MEAN CORPUSCULAR HGB CONC 33.7 % (32.0-36.0); MEAN PLATELET VOLUME 7.1 FL (7.0-11.0); MONOCYTE # 1.6 TH/MM3 (0-0.9); NEUT % 74.1 % (16.0-70.0); PLATELET COUNT 643 TH/MM3 (150-450); RED BLOOD COUNT 4.14 MIL/MM3 (4.00-5.30); RED CELL DISTRIBUTION WIDTH 13.7 % (11.6-17.2); WHITE BLOOD COUNT 20.2 TH/MM3 (4.0-11.0)
--- NOTE | 2017-12-05 08:50 | HHI.DCPOC ---
Discharge Care Plan Diagnosis: (1) Pneumonia (2) Hypokalemia (3) Hyponatremia Goals to Promote Your Health * To prevent worsening of your condition and complications * To maintain your health at the optimal level Directions to Meet Your Goals Take your medications as prescribed Follow your dietary instruction Follow activity as directed Keep your appointments as scheduled Take your immunizations and boosters as scheduled If your symptoms worsen call your PCP, if no PCP go to Urgent Care Center or Emergency Room Smoking is Dangerous to Your Health. Avoid second hand smoke Call the 24-hour hour crisis hotline for domestic abuse at Sabra Castro Dec 05, 2017 08:49
--- NOTE | 2017-12-05 08:53 | HHI.DS ---
Discharge Summary Admission Date Dec 02, 2017 at 15:10 Discharge Date: Dec 05, 2017 Admitting Diagnosis Community acquired PNA (1) Pneumonia ICD Codes: J18.9 - Pneumonia, unspecified organism Status: Acute (2) Hyponatremia ICD Codes: E87.1 - Hypo-osmolality and hyponatremia Status: Acute (3) Hypokalemia ICD Codes: E87.6 - Hypokalemia Status: Acute Consultants None Procedures None Brief History This is 62-year-old female patient with past medical history which includes uterine prolapse and COPD. Patient was seen earlier today outpatient setting was referred to emergency department for further evaluation and treatment. Patient reports she started cough about 3 weeks ago from allergies. Patient reports progressive worsening of shortness of breath and cough for the previous 3 weeks. Patient's cough is productive of green phlegm. Patient's symptoms are associated with subjective fevers, chills or diaphoresis and decreased appetite. Prior 3 weeks ago patient was in her normal state of health. Patient is not aware of any sick contacts. Patient's been taking over-the- counter Benadryl and Zuleima-[place] with no relief. Patient denies chest pain nausea vomiting diarrhea or constipation. Chest x-ray in the emergency department reviewed and reveals consolidative infiltrate in the right middle lobe and lingula and on most characteristic of pneumonia Pulse oxygenation 90% on room air upon arrival to the emergency department White blood cell count 13.3 neutrophil percent 70.9 with 34% bands Potassium also noted to be 2.9 magnesium 2.0 Lactic acid 1.6 CBC/BMP: 12/05/17 0754 12/04/17 0605 Significant Findings Laboratory Tests Test 12/02/17 13:10 12/02/17 13:48 12/03/17 03:40 12/04/17 06:05 White Blood Count 13.3 TH/MM3 (4.0-11.0) 15.1 TH/MM3 (4.0-11.0) 24.5 TH/MM3 (4.0-11.0) Hemoglobin 11.5 GM/DL (11.6-15.3) 10.8 GM/DL (11.6-15.3) 11.0 GM/DL (11.6-15.3) Hematocrit 33.5 % (35.0-46.0) 32.2 % (35.0-46.0) 32.8 % (35.0-46.0) Neutrophils (%) (Auto) 70.9 % (16.0-70.0) 88.1 % (16.0-70.0) 84.6 % (16.0-70.0) Monocytes (%) (Auto) 13.9 % (0.0-8.0) Neutrophils # (Auto) 9.5 TH/MM3 (1.8-7.7) 13.3 TH/MM3 (1.8-7.7) 20.7 TH/MM3 (1.8-7.7) Monocytes # (Auto) 1.9 TH/MM3 (0-0.9) 1.4 TH/MM3 (0-0.9) Band Neutrophils % 34 % (0-6) 11 % (0-6) 18 % (0-6) Monocytes % 10 % (0-8) Neutrophils # (Manual) 10.6 TH/MM3 (1.8-7.7) 13.9 TH/MM3 (1.8-7.7) 20.8 TH/MM3 (1.8-7.7) Metamyelocytes 2 % (0-1) 2 % (0-1) Toxic Granulation 2+ (NORMAL) 1+ (NORMAL) 2+ (NORMAL) Random Glucose 113 MG/DL (74-106) 158 MG/DL (74-106) 135 MG/DL (74-106) Total Protein 8.4 GM/DL (6.4-8.2) Albumin 3.0 GM/DL (3.4-5.0) Alkaline Phosphatase 155 U/L (45-117) Aspartate Amino Transf (AST/SGOT) 51 U/L (15-37) Sodium Level 128 MEQ/L (136-145) Potassium Level 2.9 MEQ/L (3.5-5.1) Chloride Level 90 MEQ/L (98-107) Arterial Blood pH 7.43 (7.380-7.420) Arterial Blood Partial Pressure O2 121 mmHG (61-120) Blood Gas Hemoglobin 10.9 G/DL (12.0-16.0) Red Blood Count 3.75 MIL/MM3 (4.00-5.30) 3.82 MIL/MM3 (4.00-5.30) Neutrophils % (Manual) 80 % (16-70) Lymphocytes % 6 % (9-44) Creatinine 0.47 MG/DL (0.50-1.00) Platelet Count 559 TH/MM3 (150-450) Myelocytes 1 % (0-0) Platelet Estimate HIGH (NORMAL) Test 12/05/17 07:54 White Blood Count 20.2 TH/MM3 (4.0-11.0) Hematocrit 34.3 % (35.0-46.0) Platelet Count 643 TH/MM3 (150-450) Neutrophils (%) (Auto) 74.1 % (16.0-70.0) Neutrophils # (Auto) 15.0 TH/MM3 (1.8-7.7) Monocytes # (Auto) 1.6 TH/MM3 (0-0.9) Imaging Last Impressions Chest X-Ray 12/03/17 0000 Signed Impressions: Service Date/Time: Sunday, December 03, 2017 10:12 - CONCLUSION: Mild apparent interval improvement in the consolidative opacities in right middle lobe and lingula. Manuel Godoy MD PE at Discharge GENERAL: This is a well-nourished, well-developed patient, in no apparent distress. CARDIOVASCULAR: Regular rate and rhythm RESPIRATORY: CTA through out GASTROINTESTINAL: Abdomen soft, non-tender, nondistended. Normal active bowel sounds MUSCULOSKELETAL: Extremities without clubbing, cyanosis, or edema. NEURO: Alert & Oriented x4 to person, place, time, situation. Moves all ext x4 Hospital Course Pneumonia Reactive airway disease Patient has had shortness of breath and productive cough 3 weeks - Chest x-ray reviewed and reveals consolidative infiltrate in the right middle lobe and lingula most characteristic of pneumonia. - On closer review patient appears to have bilateral pna - Patient started on Rocephin and azithromycin emergency department will continue - Duo nebs scheduled and as needed - Solu medrol 60 mg IV Q12H -> changed to prednisone 30 mg PO BID - Supplemental oxygen to maintain oxygen saturation above 92% -> request nurse titrate oxygen to RA if possible - repeat CXR (12/03) reviewed reveals: Mild apparent interval improvement in the consolidative opacities in right middle lobe and lingula - Supportive care DVT prophylaxis with SCDs Hyponatremia Sodium 128 upon arrival to the emergency department -> 12/03 Na 138 DC IV fluids - > (12/04) 139 normal saline with 20 of K at 100ml/H DC'd Hypokalemia Potassium 2.9 upon arrival to the emergency department -> (12/03) 4.2 Magnesium 2.0 Patient symptoms improved cough is much better, patient no longer SOB patient passed walk test and does not qualify for home oxygen DC patient home with steroid taper and Levaquin PO Patient to follow up with PCP in 1 week Pt Condition on Discharge: Stable Discharge Disposition: Discharge Home Discharge Instructions DIET: Follow Instructions for: Heart Healthy Diet Activities you can perform: Regular-No Restrictions Follow up Referrals: PCP Follow-up - [address] Herring New Medications: Albuterol Neb (Albuterol Neb) 2.5 Mg/0.5 Ml Neb 2.5 MG NEB Q6HR NEB for breathing treatment, #30 BOX Note: The Albuterol Sulfate Inhalation Solution is concentrated and must be diluted. Read complete instructions carefully before using. Take with Ipratropium Ipratropium Neb (Ipratropium Neb) 0.5 Mg/2.5 Ml Amp 0.5 MG NEB Q6HR ALT NEB for Breathing Treatment, #60 NEBULE 0 Refills take with Albuterol Nebulizer (Nebulizer) 1 Mis Mis EA .XX DIRECTED for Breathing Treatment, #1 0 Refills Prednisone (Prednisone) 10 Mg Tab 10 MG PO DIRECTED for steroid taper, #21 TAB 0 Refills take 20 mg by mouth twice a day for three days, then take 20 mg by mouth once a day for three days, then take 10 mg by mouth once a day for three days, then stop Levofloxacin (Levaquin) 500 Mg Tablet 500 MG PO DAILY for antibiotic, #7 TAB 0 Refills Sabra Castro Dec 05, 2017 08:52 Ron Duenas MD Dec 05, 2017 12:54
[2017-12-05 08:57] VITALS: O2SAT 97
[2017-12-05] MEDS ORDERED: LEVOFLOXACIN 500 MG TAB PO SCH (09:00)
[2017-12-05] MEDS: RESP: ALBUTEROL 2.5 MG/IPRATROPIUM 0.5 MG NEB (SCH) INH ×2 (09:03→12:58)
[2017-12-05] MEDS: LORATADINE 10 MG TAB PO SCH (09:09)
[2017-12-05] MEDS: SODIUM CHLORIDE 0.9% FLUSH 10 ML FLUSH IV FLUSH SCH (09:09)
[2017-12-05] MEDS: predniSONE 10 MG TAB PO SCH (09:09)
[2017-12-05 09:35] LABS: BANDS 7 % (0-6); LYMPHOCYTES 8 % (9-44); METAMYELOCYTES 4 % (0-1); MONOCYTES 7 % (0-8); POLYS (SEG NEUTROPHILS) 73 % (16-70)
[2017-12-05] MEDS ORDERED: ALBU.5I NEB (11:18)
[2017-12-05] MEDS ORDERED: IPRA0.02 NEB (11:18)
[2017-12-05] MEDS ORDERED: NEBULIZER1 MI1 (11:20)
--- NOTE | 2017-12-05 11:20 | HHI.FF ---
Face to Face Verification Diagnosis: (1) Pneumonia Home Health Nursing Order: Medical education Signs/symptoms of disease process Medication education-adverse effect Nursing assessment with vital signs Instructions: please also assist with nebulizers I have seen patient Catarina Copeland on 12/05/17. My clinical findings support the need for the requested home health care services because: Patient has SOB Limited ability to care for self I certify that my clinical findings support that this patient is homebound because: Hx COPD- exertion dyspnea/weakness Sabra Castro Dec 05, 2017 11:19 Ron Duenas MD Dec 05, 2017 13:13
[2017-12-05 11:33] VITALS: BP 156/71; PULSE 69; RESP 18; TEMP 97.8; O2SAT 92
== END 2017-12-05 13:44 | disposition home health service (06) | DRG 194 ==
LOC: NEPC 12:27 → NEDA 15:10 → N06A 16:36
PROVIDERS: ADMIT Hospitalist; ATTEND Hospitalist
DX: J18.9 Pneumonia, unspecified organism (principal); J44.0 Chronic obstructive pulmonary disease with (acute) lower respiratory infection; E87.1 Hypo-osmolality and hyponatremia; E87.6 Hypokalemia; Z77.22 Contact with and (suspected) exposure to environmental tobacco smoke (acute) (chronic)
CPT/HCPCS: 36600; 71046; 80048; 80053; 82805; 83605; 83735; 83880; 85007; 85027; 87015; 87040; 87070; 87102; 87116; 87205; 87206; 87804; 93005; 94618; 94640; 94664; 96365; 96368; 96375; J0456; J0696; J2930; J3480; J7030; J7050; J7512